=== PATIENT | female | born 1945 | race Two or more races ===

== ENCOUNTER 2021-12-06 19:36 | Inpatient (IN) | payer MEDICARE, OTHER ==
[~2021-12-06] VITALS: Ht 154.9 cm; Wt 51.3 kg
--- NOTE | 2021-12-06 19:50 | NUR ---
BIBRA 83 C/O SYNCOPE EPIOSDE AT HOME, FOUND BY ON FLOOR HIT BACK OF HEAD. PT PRESENTS WITH AN APPROXIMATE 2 CM LACERATION TO THE POSTERIOR ASPECT OF HEAD. NO NEURO DEFECITS NOTED. PT CHANGED INTO A GOWN AND PLACED ON MONITOR AND ALL V/S STABLE.
--- NOTE | 2021-12-06 20:33 | NUR ---
EMT AT BEDSIDE FOR WOUND CARE
--- NOTE | 2021-12-06 20:36 | NUR ---
ACDS BLOCK 1 OPERATOR AT PT'S BEDSIDE
[2021-12-06] MEDS ORDERED: LIDOCAINE 1%-EPI 1:100,000 20 ML VIAL ONE (21:13)
--- NOTE | 2021-12-06 21:13 | NUR ---
PT TAKEN TO CT VIA [facility]
[2021-12-06] MEDS ORDERED: LIDOCAINE 1%-EPI 1:100,000 20 ML VIAL TP ONE (21:30)
[2021-12-06] MEDS ORDERED: TDAP [DIPH/PERTUSSIS/TET] 0.5 ML VIAL IM ONE ×2 (21:30→21:47)
[2021-12-06 21:53] LABS: CALCIUM, SERUM 9.5 mg/dL (8.5-10.1); CARBON DIOXIDE 28 mmol/L (21-32); CHLORIDE 103 mmol/L (98-107); GLUCOSE 126 mg/dL (74-106); POTASSIUM 3.9 mmol/L (3.5-5.1); SODIUM SERUM 137 mmol/L (136-145); UREA NITROGEN, BLOOD 11 mg/dL (7-18)
[2021-12-06 21:55] LABS: BASOPHILS # (AUTO) 0.1 K/uL (0.0-0.2); BASOPHILS % (AUTO) 1.2 % (0.0-2.0); EOSINOPHILS % (AUTO) 5.2 % (0.0-6.0); HEMATOCRIT 35 % (33-45); HEMOGLOBIN 11.1 g/dL (11.5-14.8); LYMPHOCYTES # (AUTO) 1.7 K/uL (0.8-4.8); LYMPHOCYTES % (AUTO) 23.1 % (20.0-44.0); MEAN CORPUSCULAR HGB CONC 32 g/dl (31.0-36.0); MEAN CORPUSCULAR VOLUME 79 fL (82-100); MONOCYTES # (AUTO) 0.5 K/uL (0.1-1.30); MONOCYTES % (AUTO) 7.2 % (2.0-12.0); NEUTROPHILS # (AUTO) 4.6 K/uL (1.8-8.9); NEUTROPHILS % (AUTO) 63.3 % (43.0-81.0); PLATELET COUNT (AUTO) 417 K/uL (150-450); RED BLOOD CELL COUNT(AUTO) 4.42 MIL/uL (4.0-5.2); WHITE BLOOD COUNT (AUTO) 7.3 K/uL (4.3-11.0)
[2021-12-06] MEDS ORDERED: Z GUARD REMEDY 4 OZ OINT TP PRN (23:00)
[2021-12-06] MEDS ORDERED: MAGNESIUM HYDROXIDE 30 ML UDC PO PRN (23:00)
[2021-12-06] MEDS ORDERED: ONDANSETRON HCL/PF 4 MG/2 ML VIAL IVP PRN (23:00)
[2021-12-06] MEDS ORDERED: ZOLPIDEM TARTRATE 5 MG TABLET PO PRN (23:00)
[2021-12-06] MEDS ORDERED: MAG HYDROX/AL HYDROX/SIMETH 30 ML UDC PO PRN (23:00)
--- NOTE | 2021-12-06 23:31 | NUR ---
CALLED TO LET HIM KNOW PT IS STAYING IN THE HOSP.
[2021-12-07] MEDS ORDERED: ACETAMINOPHEN 325 MG TABLET ONE ×3 (02:02→19:10)
[2021-12-07] MEDS: ACETAMINOPHEN 325 MG TABLET PO PRN ×2 (02:04→19:13)
[2021-12-07 03:12] LABS: BASOPHILS % (AUTO) 0.5 % (0.0-2.0); EOSINOPHILS % (AUTO) 0.8 % (0.0-6.0); HEMATOCRIT 32 % (33-45); HEMOGLOBIN 10.4 g/dL (11.5-14.8); LYMPHOCYTES # (AUTO) 2.2 K/uL (0.8-4.8); LYMPHOCYTES % (AUTO) 22.8 % (20.0-44.0); MEAN CORPUSCULAR HGB CONC 33 g/dl (31.0-36.0); MEAN CORPUSCULAR VOLUME 78 fL (82-100); MONOCYTES # (AUTO) 0.6 K/uL (0.1-1.30); MONOCYTES % (AUTO) 6.6 % (2.0-12.0); NEUTROPHILS # (AUTO) 6.7 K/uL (1.8-8.9); NEUTROPHILS % (AUTO) 69.3 % (43.0-81.0); PLATELET COUNT (AUTO) 396 K/uL (150-450); RED BLOOD CELL COUNT(AUTO) 4.11 MIL/uL (4.0-5.2); WHITE BLOOD COUNT (AUTO) 9.7 K/uL (4.3-11.0)
[2021-12-07 03:24] LABS: CHOLESTEROL 181 mg/dL (<200); HDL CHOLESTEROL 75 mg/dL (40-60); LDL 91 mg/dL (0-99); TRIGLYCERIDES 63 mg/dL (30-150)
[2021-12-07 03:32] LABS: ALANINE AMINOTRANSFERASE 45 U/L (12-78); ALBUMIN 2.9 g/dL (3.4-5.0); ALKALINE PHOSPHATASE 618 U/L (46-116); ASPARTATE AMINOTRANSFERASE 54 U/L (15-37); BILIRUBIN,TOTAL 0.4 mg/dL (0.2-1.0); CALCIUM, SERUM 9.4 mg/dL (8.5-10.1); CARBON DIOXIDE 30 mmol/L (21-32); CHLORIDE 103 mmol/L (98-107); GLUCOSE 129 mg/dL (74-106); MAGNESIUM 2.4 mg/dL (1.8-2.4); PHOSPHORUS 3.6 mg/dL (2.5-4.9); SODIUM SERUM 138 mmol/L (136-145); TOTAL PROTEIN, SERUM 9.2 g/dL (6.4-8.2); UREA NITROGEN, BLOOD 11 mg/dL (7-18)
--- NOTE | 2021-12-07 04:03 | NUR ---
PT SLEEPING COMFORTABLY BREATHING EVEN AND UNLABORED. CALL LIGHT WITHIN REACH AND ALL V/S STABLE.
[2021-12-07] MEDS ORDERED: ATEN25TA PO (08:23)
[2021-12-07] MEDS ORDERED: NIFE30TA91 PO (08:23)
[2021-12-07 15:51] LABS: THYROID STIMULATING HORMONE 2.174 uIU/mL (0.358-3.74)
--- NOTE | 2021-12-07 18:49 | NUR ---
ROOM 324-1
--- NOTE | 2021-12-07 19:30 | NUR ---
REPORT GIVEN TO NURSE AKERS FOR MICHELLE
--- NOTE | 2021-12-07 20:27 | NUR ---
TRANSFERRED PATIENT TO [facility]
[2021-12-07 20:45] VITALS: BP_SYST 88; BP_DIAS 60; BP_DIAS 66
--- NOTE | 2021-12-07 20:45 | NUR ---
Received patient alert and orientated x3 [place] ambulated from the [place] to the bed steady gait she is joking and smiling denies H/A pain or body pain/ noted right side of the head dried blood small area s/p fall at home whne she had the syncopy epoisode she is moving all extremities
[2021-12-08] VITALS: BP 154/78
[2021-12-08 04:00] VITALS: BP 161/77
[2021-12-08 06:08] VITALS: BP 155/73
--- NOTE | 2021-12-08 07:02 | NUR ---
Ending Notes: alert and orientated X4 up to the bathroom steady on her legs she will verbalize her needs right posterior head laceration dried blood scabbing noted neuro checks intact denies dizziness or lightheadedness bed alarm on the bed
[2021-12-08 07:16] LABS: BASOPHILS # (AUTO) 0.1 K/uL (0.0-0.2); BASOPHILS % (AUTO) 1.1 % (0.0-2.0); HEMATOCRIT 31 % (33-45); HEMOGLOBIN 9.9 g/dL (11.5-14.8); LYMPHOCYTES # (AUTO) 2.6 K/uL (0.8-4.8); LYMPHOCYTES % (AUTO) 35.3 % (20.0-44.0); MEAN CORPUSCULAR HGB CONC 32 g/dl (31.0-36.0); MEAN CORPUSCULAR VOLUME 79 fL (82-100); MONOCYTES # (AUTO) 0.7 K/uL (0.1-1.30); MONOCYTES % (AUTO) 8.7 % (2.0-12.0); NEUTROPHILS # (AUTO) 3.6 K/uL (1.8-8.9); NEUTROPHILS % (AUTO) 47.9 % (43.0-81.0); PLATELET COUNT (AUTO) 366 K/uL (150-450); RED BLOOD CELL COUNT(AUTO) 3.86 MIL/uL (4.0-5.2); WHITE BLOOD COUNT (AUTO) 7.5 K/uL (4.3-11.0)
--- NOTE | 2021-12-08 07:30 | NUR ---
INSURANCE VERIFICATION REP NOTES RECEIVED PT IN BED, AWAKE, ALERT AND ORIENTED, RESPIRATIONS NORMAL, CALL LIGHT WITHIN REACH, NEEDS ATTENDED.
[2021-12-08] MEDS: ACETAMINOPHEN 325 MG TABLET PO PRN (08:06)
[2021-12-08 08:11] VITALS: BP 168/78
[2021-12-08 08:18] LABS: ALANINE AMINOTRANSFERASE 40 U/L (12-78); ALBUMIN 2.7 g/dL (3.4-5.0); ALKALINE PHOSPHATASE 547 U/L (46-116); ASPARTATE AMINOTRANSFERASE 46 U/L (15-37); BILIRUBIN,TOTAL 0.3 mg/dL (0.2-1.0); CARBON DIOXIDE 27 mmol/L (21-32); CHLORIDE 103 mmol/L (98-107); CREATININE 0.9 mg/dL (0.6-1.3); GLUCOSE 96 mg/dL (74-106); MAGNESIUM 2.4 mg/dL (1.8-2.4); PHOSPHORUS 3.8 mg/dL (2.5-4.9); POTASSIUM 3.6 mmol/L (3.5-5.1); SODIUM SERUM 139 mmol/L (136-145); TOTAL PROTEIN, SERUM 8.5 g/dL (6.4-8.2); UREA NITROGEN, BLOOD 17 mg/dL (7-18)
[2021-12-08] MEDS ORDERED: NIFEdipine XL (30MG) 30 MG TAB PO SCH (10:00)
[2021-12-08 10:43] VITALS: BP 166/69
--- NOTE | 2021-12-08 10:59 | NUR ---
MINCING MACHINE OPERATOR NOTES PT IN BED, AWAKE, ALERT AND ORIENTED, NO COMPLAINT OF PAIN OR ANY DISCOMFORT, NOT IN DISTRESS, ON ROOM AIR, SEEN BY DR. WRIGHT, DISCHARGE ORDER GIVEN, DISCHARGE AND MEDICATION INSTRUCTIONS PROVIDED TO PT, VERBALIZED UNDERSTANDING, BELONGINGS ACCOUNTED FOR, ASSISTED TO HOSPITAL LOBBY WITH , LEFT VIA TAXI, IN STABLE CONDITION.
[2021-12-08 14:07] LABS: *SPE A/G RATIO 0.6 (0.7-1.7); *SPE ALPHA-1-GLOBULIN 0.3 g/dL (0.0-0.4); *SPE BETA GLOBULIN 1.3 g/dL (0.7-1.3); *SPE M-SPIKE Not Observed g/dL (Not Observed)
== END 2021-12-08 10:55 | disposition home or self-care (01) | DRG 74 ==
LOC: ER 19:38 → TRANSITION 23:14 → TELE 12-07 19:21 → MED 12-08 07:00 → TELE 12-08 07:02
PROVIDERS: ADMIT Hospitalist; ATTEND Internal Medicine
PROC: 0HQ0XZZ Repair Scalp Skin, External Approach (ICD-10-PCS; principal; 2021-12-06)
DX: G90.8 Other disorders of autonomic nervous system (principal); S01.01XA Laceration without foreign body of scalp, initial encounter; E11.9 Type 2 diabetes mellitus without complications; I10 Essential (primary) hypertension; D50.9 Iron deficiency anemia, unspecified; Z20.822 Contact with and (suspected) exposure to COVID-19; H91.90 Unspecified hearing loss, unspecified ear; R77.1 Abnormality of globulin; W19.XXXA Unspecified fall, initial encounter; Y92.009 Unspecified place in unspecified non-institutional (private) residence as the place of occurrence of the external cause; Z88.0 Allergy status to penicillin
CPT/HCPCS: 36415; 70450-TC; 71045-TC; 72125-TC; 80048-TC; 80053-TC; 80061-TC; 82728-TC; 82962-TC; 83540-TC; 83735-TC; 84100-TC; 84155; 84165; 84439-TC; 84443-TC; 84484-TC; 85025-TC; 85652-TC; 87081-TC; 90715; 93307-TC; C9803; G0378; J2405; J3490